=== PATIENT | male | born 2005 | race Caucasian/White ===

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

== ENCOUNTER 2023-12-18 22:34 | Emergency (ER) | payer OTHER ==
[~2023-12-18] VITALS: Ht 195.6 cm; Wt 96.2 kg
[2023-12-18 22:37] VITALS: BP 142/65
== END 2023-12-18 23:17 | disposition home or self-care (01) ==
LOC: ER 22:34
DX: S53.401A Unspecified sprain of right elbow, initial encounter (principal); S50.01XA Contusion of right elbow, initial encounter; W18.30XA Fall on same level, unspecified, initial encounter; Y93.67 Activity, basketball
CPT/HCPCS: 73080; 99283-25

== ENCOUNTER 2023-12-20 12:01 | Emergency (ER) | payer OTHER ==
[~2023-12-20] VITALS: Ht 195.6 cm; Wt 96.2 kg
[2023-12-20 12:20] VITALS: BP 131/70
== END 2023-12-20 15:12 | disposition home or self-care (01) ==
LOC: ER 12:01
DX: S52.124A Nondisplaced fracture of head of right radius, initial encounter for closed fracture (principal); W13.3XXA Fall through floor, initial encounter; Y92.39 Other specified sports and athletic area as the place of occurrence of the external cause
CPT/HCPCS: 29105; 99281-25

== ENCOUNTER 2025-05-12 01:08 | Emergency (ER) | payer OTHER ==
[~2025-05-12] VITALS: Ht 195.6 cm; Wt 90.7 kg
[2025-05-12 01:27] VITALS: BP 124/55
[2025-05-12] MEDS ORDERED: LACTASE3000 UNI1 (01:29)
[2025-05-12 01:47] LABS: Alanine Aminotransfer (ALT/SGP 23 U/L (12-78); Albumin, Blood 4.2 g/dL (3.4-5.0); Albumin/Globulin Ratio 1.4 (0.8-1.8); Anion Gap 9 mmol/L (3-11); Aspartate Aminotrans (AST/SGOT 22 U/L (12-37); Bilirubin, Total 0.3 mg/dL (0.1-1.0); Blood Urea Nitrogen 19 mg/dL (8-24); CO2, Blood 22 mmol/L (21-32); Calcium, Blood 9.2 mg/dL (8.5-10.1); Chloride, Blood 111 mmol/L (98-108); Creatinine, Blood 0.94 mg/dL (0.60-1.20); Ethanol (Alcohol), Blood, Med <3 mg/dL; Globulin, Blood 2.9 g/dL (2.2-4.0); Glucose, Blood 77 mg/dL (70-99); Potassium, Blood 3.5 mmol/L (3.5-5.5); Sodium, Blood 138 mmol/L (136-145); Total Protein, Blood 7.1 g/dL (6.4-8.2)
[2025-05-12 01:50] LABS: BASOPHILS ABSOLUTE AUTO 0.03 K/mm3 (0.00-0.23); BASOPHILS PERCENT AUTO 1 % (0-2); EOSINOPHILS ABSOLUTE AUTO 0.15 K/mm3 (0.00-0.68); EOSINOPHILS PERCENT AUTO 2 % (0-6); Hematocrit 36.3 % (37.0-53.0); Hemoglobin 12.9 g/dL (13.5-17.5); IMMATURE GRAN ABSOLUTE AUTO 0.03 K/mm3 (0.00-0.10); IMMATURE GRAN PERCENT AUTO 1 % (0-1); LYMPHOCYTES ABSOLUTE AUTO 2.25 K/mm3 (0.84-5.20); LYMPHOCYTES PERCENT AUTO 35 % (21-46); MONOCYTES ABSOLUTE AUTO 0.50 K/mm3 (0.16-1.47); MONOCYTES PERCENT AUTO 8 % (4-13); Mean Corpuscular HGB Conc 35.5 g/dL (31.5-36.5); Mean Corpuscular Volume 85 fL (80-100); NEUTROPHILS ABSOLUTE AUTO 3.49 K/mm3 (1.96-9.15); NEUTROPHILS PERCENT AUTO 54 % (41-73); NRBC ABSOLUTE 0.00 K/mm3 (0.00-0.02); NRBC Auto 0.0 /100 WBC (0.0-0.2); Platelet Count 249 K/mm3 (150-400); RDW Coefficient Variation 12.6 % (11.7-14.2); RDW Standard Deviation 39.0 fL (35.1-46.3)
[2025-05-12] MEDS ORDERED: Morphine Sulfate 4 MG/1 ML Injection IV ONE (02:15)
[2025-05-12 02:39] LABS: Source, Urine Voided
[2025-05-12 02:43] LABS: Bilirubin, Urine Neg (Neg); Glucose Qualitative, Urine Neg (Neg); Ketones, Urine Neg (Neg); Leukocyte Esterase, Urine Neg (Neg); Protein, Urine Neg (Neg); Specific Gravity, Urine 1.020 (1.003-1.022); Urobilinogen, Urine NORM (Normal)
[2025-05-12 02:45] LABS: Color, Urine Yellow (P-Yellow)
[2025-05-12 02:50] LABS: Red Blood Cells, Urine 0-2 /hpf (0-2); White Blood Cells, Urine Not Seen /hpf (0-5)
[2025-05-12 02:58] LABS: U Amphetamine Screen Not Detected; U Barbituate Screen Not Detected; U Benzodiazapine Screen Not Detected; U Buprenorphine Screen Not Detected; U Cannabinoids Screen DETECTED; U Cocaine Screen Not Detected; U Methadone Screen Not Detected; U Methamphetamine Screen Not Detected; U Opiates Screen Not Detected; U Oxycodone Screen Not Detected; U Phencyclidine Screen Not Detected
[2025-05-12] MEDS ORDERED: CYCL10 PO (04:41)
[2025-05-12] MEDS ORDERED: IBU600 MG PO (04:41)
[2025-05-12] MEDS ORDERED: Ketorolac Tromethamine 30mg Vial IV ONE (04:45)
== END 2025-05-12 05:08 | disposition home or self-care (01) ==
LOC: ER 01:08
PROVIDERS: Emergency Medicine
DX: M25.511 Pain in right shoulder (principal); Z79.899 Other long term (current) drug therapy; V49.9XXA Car occupant (driver) (passenger) injured in unspecified traffic accident, initial encounter
CPT/HCPCS: 70450; 70498; 71260; 72125; 73030; 74177; 80053; 80320; 81001; 83605; 84484; 85025; 93005; 93010; 96374-59; 96375-59; 99285-25; J1885; J2270; Q9967